=== PATIENT | female | born 1995 | race Caucasian/White ===

== ENCOUNTER 2020-02-03 16:19 | Emergency (ER) | payer OTHER ==
[~2020-02-03] VITALS: Ht 172.7 cm; Wt 78.5 kg
[2020-02-03 16:35] VITALS: BP 109/67
--- NOTE | 2020-02-03 16:50 | NUR ---
BIB SELF C/O NASAL DRIPPED, HEADACHE, DIZZINESS X TODAY. MED HX: IBS, SINUSITIS, MIGRAINE ALLERGY : FLOROQUINE ANTIBIOTICS BUT PENICILLIN IS OK.
--- NOTE | 2020-02-03 16:56 | NUR ---
PT AMB TO BED 11.
--- NOTE | 2020-02-03 17:04 | NUR ---
DR FORTUNE EVALUATING PT AT BEDSIDE
[2020-02-03 17:19] VITALS: BP 109/67
--- NOTE | 2020-02-03 17:19 | NUR ---
Patient discharged with v/s stable. Written and verbal after care instructions given and explained. Patient alert, oriented and verbalized understanding of instructions. Ambulatory with steady gait. All questions addressed prior to discharge. ID band removed. Patient advised to follow up with PMD. Rx of FLONASE AND LORATIDINE given. Patient educated on indication of medication including possible reaction and side effects. Opportunity to ask questions provided and answered.
== END 2020-02-03 17:19 | disposition home or self-care (01) ==
LOC: MED 16:19
DX: J30.9 Allergic rhinitis, unspecified (principal); J32.9 Chronic sinusitis, unspecified
CPT/HCPCS: 99283